=== PATIENT | female | born 1935 | race Caucasian/White ===

== ENCOUNTER 2017-05-22 00:51 | Inpatient (IN) | payer OTHER, MEDICAID ==
[~2017-05-22] VITALS: Ht 157.5 cm; Wt 84.5 kg
[~2017-05-22 00:51] MED LIST: COLE3.75; KETO2SHA; LORATAB; PANTOPRAZOLE; SIMV5TAB50; [UNRECOGNIZED DRUG - CODE]
[2017-05-22 01:52] LABS: Basophils # (auto) 0.1 uL; Basophils % (auto) 1.2 % (0.0-2.0); Eosinophils # (auto) 0.1 uL; Eosinophils % (auto) 1.6 % (0.0-7.0); Hematocrit 39.6 % (36.0-46.0); Hemoglobin 13.2 g/dL (12.2-16.2); Lymphocytes # (auto) 0.9 uL; Lymphocytes % (auto) 16.8 % (10.0-50.0); Mean Corpuscular Hemoglobin 33.8 pg (28.0-32.0); Mean Corpuscular Hgb Conc. 33.5 g/dL (32.0-36.0); Mean Corpuscular Volume 100.9 fL (80.0-100.0); Monocytes # (auto) 0.4 uL; Monocytes % (auto) 8.4 % (0.0-12.0); Neutrophils # (auto) 3.8 uL; Nucleated Red Blood Cells % 0.2 %; Platelet Count (auto) 202 10^3/uL (140-450); Red Blood Cells 3.92 10^6/uL (4.0-5.20); Red Cell Distribution Width 13.2 % (11.8-14.3); White Blood Cell 5.3 10^3/uL (4.4-10.8)
[2017-05-22] MEDS ORDERED: HYDROcodone-ACET 10/325MG TAB PO ONE ×2 (02:30→05:15)
[2017-05-22 02:34] LABS: Anion Gap 1 (5-15); BUN/Creatinine Ratio 24.6; Blood Urea Nitrogen 30 mg/dL (7-18); Carbon Dioxide 36 mmol/L (21-32); Chloride 107 mmol/L (98-107); GFR African American 54 mL/min; GFR Non-African American 45 mL/min; Glucose 102 mg/dL (74-106); Potassium 3.1 mmol/L (3.5-5.1); Sodium 144 mmol/L (136-145)
[2017-05-22 02:35] LABS: Alanine Aminotransferase 16 U/L (13-56); Albumin 3.1 g/dL (3.4-5.0); Alkaline Phosphatase 96 U/L (45-117); Aspartate Aminotransferase 17 U/L (15-37); Bilirubin, Total 0.4 mg/dL (0.2-1.0); Calcium 8.4 mg/dL (8.5-10.1); Magnesium 2.1 mg/dL (1.6-2.6); Total Protein 6.2 g/dL (6.4-8.2)
[2017-05-22] MEDS ORDERED: ONDANSETRON HCL 4 MG/2 ML VIAL IV PRN (06:15)
[2017-05-22] MEDS ORDERED: POTASSIUM CHL 20 Meq TABLET PO ONE (06:15)
[2017-05-22] MEDS ORDERED: NITROGLYCERIN 0.4 MG SL TAB SL PRN (06:15)
[2017-05-22] MEDS ORDERED: MORPHINE SULFATE 4 MG/ML SYR/VIAL IV PRN ×2 (06:15)
[2017-05-22] MEDS: SODIUM CHLORIDE 0.9% 1,000 ML IV SCH ×2 (07:11→12:50)
[2017-05-22 08:20] LABS: INR 1.6 (0.9-1.15); Partial Thromboplastin Time 30.1 sec (22.64-33.71); Prothrombin Time 17.5 sec (9.37-12.3)
[2017-05-22 09:00] VITALS: BP 108/59
[2017-05-22] MEDS: FAMOTIDINE 20 MG TAB PO SCH (10:00)
[2017-05-22] MEDS ORDERED: ENOXAPARIN SOD 30 MG/0.3 ML SYRINGE SC SCH (10:00)
[2017-05-22] MEDS: METOPROLOL SUCCINATE XL 50 MG TAB PO SCH (10:00)
[2017-05-22 10:18] VITALS: BP 108/59
[2017-05-22] MEDS: HYDROcodone-ACET 5/325MG TAB PO PRN ×2 (11:11→16:25)
[2017-05-22 12:00] VITALS: BP 105/47
[2017-05-22 17:00] VITALS: BP 110/63
[2017-05-22] MEDS ORDERED: PHYTONADIONE (VIT K)10 MG/ML 1ML VIAL SUBCUT ONE (17:00)
[2017-05-22] MEDS: ATORVASTATIN 20 MG TAB PO SCH (21:34)
[2017-05-22 22:00] VITALS: BP 118/43
[2017-05-23] MEDS: HYDROcodone-ACET 5/325MG TAB PO PRN ×2 (01:35→12:53)
[2017-05-23 05:14] LABS: Urine Bacteria FEW /hpf (None Seen); Urine Blood 2+ /uL (Negative); Urine Mucus FEW (None Seen); Urine Specific Gravity 1.024 (1.001-1.035); Urine WBC 11 /hpf (0 - 5)
[2017-05-23 05:16] LABS: Basophils # (auto) 0.1 uL; Eosinophils # (auto) 0.1 uL; Lymphocytes # (auto) 0.6 uL; Monocytes # (auto) 0.4 uL; Neutrophils # (auto) 6.6 uL; White Blood Cell 7.8 10^3/uL (4.4-10.8)
[2017-05-23 05:18] LABS: Basophils % (auto) 1.2 % (0.0-2.0); Eosinophils % (auto) 1.5 % (0.0-7.0); Lymphocytes % (auto) 7.9 % (10.0-50.0); Mean Corpuscular Hemoglobin 34.5 pg (28.0-32.0); Mean Corpuscular Hgb Conc. 34.1 g/dL (32.0-36.0); Mean Corpuscular Volume 101.2 fL (80.0-100.0); Neutrophils % (auto) 84.4 % (37.0-80.0); Nucleated Red Blood Cells % 0.1 %; Platelet Count (auto) 160 10^3/uL (140-450); Red Blood Cells 3.75 10^6/uL (4.0-5.20); Red Cell Distribution Width 13.2 % (11.8-14.3)
[2017-05-23 05:33] LABS: Albumin 2.7 g/dL (3.4-5.0); BUN/Creatinine Ratio 24.3; Calcium 8.5 mg/dL (8.5-10.1); Potassium 3.7 mmol/L (3.5-5.1)
[2017-05-23 05:36] LABS: Total Protein 5.7 g/dL (6.4-8.2)
[2017-05-23 05:50] VITALS: BP 108/52
[2017-05-23 08:45] LABS: INR 2.19 (0.9-1.15); Prothrombin Time 24.1 sec (9.37-12.3)
[2017-05-23 09:00] VITALS: BP 137/64
[2017-05-23] MEDS ORDERED: ENOXAPARIN SOD 40 MG/0.4 ML SYRINGE SC SCH (10:00)
[2017-05-23] MEDS: FAMOTIDINE 20 MG TAB PO SCH (10:00)
[2017-05-23 12:00] VITALS: BP 161/93
[2017-05-23] MEDS: SODIUM CHLORIDE 0.9% 1,000 ML IV SCH (12:59)
[2017-05-23 15:00] VITALS: BP 151/90
[2017-05-23] MEDS ORDERED: MEPERIDINE HCL (25 MG/ML) 1ML VIAL IV PRN (17:15)
[2017-05-23] MEDS ORDERED: IOHEXOL 350 MG/ML 100ML IJ ONE (17:26)
[2017-05-23] MEDS: METOPROLOL SUCCINATE XL 50 MG TAB PO SCH (18:11)
[2017-05-23] MEDS: ATORVASTATIN 20 MG TAB PO SCH (21:38)
[2017-05-23 22:00] VITALS: BP 107/57
[2017-05-24 05:55] VITALS: BP 113/61
[2017-05-24] MEDS: SODIUM CHLORIDE 0.9% 1,000 ML IV SCH ×2 (06:25→22:15)
[2017-05-24 07:22] LABS: Basophils # (auto) 0.1 uL; Basophils % (auto) 1.2 % (0.0-2.0); Eosinophils # (auto) 0 uL; Eosinophils % (auto) 0.4 % (0.0-7.0); Hematocrit 36.7 % (36.0-46.0); Hemoglobin 12.4 g/dL (12.2-16.2); Lymphocytes # (auto) 0.4 uL; Lymphocytes % (auto) 4.8 % (10.0-50.0); Mean Corpuscular Hemoglobin 34.1 pg (28.0-32.0); Mean Corpuscular Hgb Conc. 33.8 g/dL (32.0-36.0); Mean Corpuscular Volume 100.9 fL (80.0-100.0); Monocytes # (auto) 0.5 uL; Monocytes % (auto) 6.1 % (0.0-12.0); Neutrophils # (auto) 7.4 uL; Neutrophils % (auto) 87.5 % (37.0-80.0); Platelet Count (auto) 165 10^3/uL (140-450); Red Blood Cells 3.64 10^6/uL (4.0-5.20); Red Cell Distribution Width 12.8 % (11.8-14.3); White Blood Cell 8.5 10^3/uL (4.4-10.8)
[2017-05-24 07:56] LABS: Albumin 2.2 g/dL (3.4-5.0); Calcium 8.1 mg/dL (8.5-10.1); Potassium 3.8 mmol/L (3.5-5.1); Total Protein 5.7 g/dL (6.4-8.2)
[2017-05-24 08:07] VITALS: BP 120/95
[2017-05-24] MEDS: FAMOTIDINE 20 MG TAB PO SCH (10:22)
[2017-05-24] MEDS: LEVOFLOXACIN 500MG 100 ML IV SCH (10:22)
[2017-05-24] MEDS: METOPROLOL SUCCINATE XL 50 MG TAB PO SCH (10:23)
[2017-05-24] MEDS: HYDROcodone-ACET 5/325MG TAB PO PRN ×2 (10:26→14:32)
[2017-05-24 11:26] VITALS: BP 100/48
[2017-05-24 14:12] LABS: INR 1.11 (0.9-1.15); Prothrombin Time 12.1 sec (9.37-12.3)
[2017-05-24 17:01] LABS: Urine Amorphous Crystal FEW /hpf (None Seen); Urine Bacteria FEW /hpf (None Seen); Urine Blood 1+ /uL (Negative); Urine Mucus FEW (None Seen); Urine Specific Gravity 1.032 (1.001-1.035); Urine WBC 27 /hpf (0 - 5)
[2017-05-24 17:15] VITALS: BP 81/34
[2017-05-24 22:00] VITALS: BP 110/53
[2017-05-24] MEDS: ATORVASTATIN 20 MG TAB PO SCH (22:00)
[2017-05-24] MEDS ORDERED: ENOXAPARIN SOD 30 MG/0.3 ML SYRINGE SC ONE (22:30)
[2017-05-25 05:34] VITALS: BP 118/63
[2017-05-25 08:00] VITALS: BP 120/95
[2017-05-25 09:00] VITALS: BP 120/68
[2017-05-25] MEDS: HYDROcodone-ACET 5/325MG TAB PO PRN ×2 (10:25→16:51)
[2017-05-25] MEDS: FAMOTIDINE 20 MG TAB PO SCH (10:25)
[2017-05-25] MEDS: LEVOFLOXACIN 500MG 100 ML IV SCH (10:25)
[2017-05-25] MEDS: ENOXAPARIN SOD 40 MG/0.4 ML SYRINGE SC SCH (10:26)
[2017-05-25] MEDS: SODIUM CHLORIDE 0.9% 1,000 ML IV SCH (10:56)
[2017-05-25] MEDS: METOPROLOL SUCCINATE XL 50 MG TAB PO SCH (10:57)
[2017-05-25 13:00] VITALS: BP 104/40
[2017-05-25 16:00] VITALS: BP 127/68
[2017-05-25] MEDS: BOOST PLUS 8 ounce PO SCH (18:00)
[2017-05-25] MEDS: ATORVASTATIN 20 MG TAB PO SCH (21:50)
[2017-05-25 22:00] VITALS: BP 136/64
[2017-05-25] MEDS: ACETAMINOPHEN 325 MG TAB PO PRN (22:03)
[2017-05-26] VITALS (7 sets, daily range): BP systolic 117–129; BP diastolic 57–76
[2017-05-26] MEDS: SODIUM CHLORIDE 0.9% 1,000 ML IV SCH ×2 (05:25→17:58)
[2017-05-26] MEDS: BOOST PLUS 8 ounce PO SCH ×2 (08:00→17:58)
[2017-05-26] MEDS: METOPROLOL SUCCINATE XL 50 MG TAB PO SCH (09:36)
[2017-05-26] MEDS: LEVOFLOXACIN 500MG 100 ML IV SCH (09:36)
[2017-05-26] MEDS: ENOXAPARIN SOD 40 MG/0.4 ML SYRINGE SC SCH (09:36)
[2017-05-26] MEDS: FAMOTIDINE 20 MG TAB PO SCH (09:36)
[2017-05-26 19:14] LABS: Basophils # (auto) 0.1 uL; Basophils % (auto) 0.7 % (0.0-2.0); Eosinophils # (auto) 0.3 uL; Eosinophils % (auto) 3.6 % (0.0-7.0); Hemoglobin 12.9 g/dL (12.2-16.2); Lymphocytes # (auto) 0.5 uL; Lymphocytes % (auto) 6.4 % (10.0-50.0); Mean Corpuscular Hemoglobin 33.4 pg (28.0-32.0); Mean Corpuscular Hgb Conc. 33.1 g/dL (32.0-36.0); Mean Corpuscular Volume 100.9 fL (80.0-100.0); Monocytes # (auto) 0.7 uL; Monocytes % (auto) 9.2 % (0.0-12.0); Neutrophils # (auto) 5.7 uL; Neutrophils % (auto) 80.1 % (37.0-80.0); Platelet Count (auto) 203 10^3/uL (140-450); Red Blood Cells 3.86 10^6/uL (4.0-5.20); Red Cell Distribution Width 13.1 % (11.8-14.3); White Blood Cell 7.2 10^3/uL (4.4-10.8)
[2017-05-26 19:25] LABS: INR 0.98 (0.9-1.15); Prothrombin Time 10.7 sec (9.37-12.3)
[2017-05-26 19:29] LABS: BUN/Creatinine Ratio 24.6; Calcium 8.3 mg/dL (8.5-10.1); Potassium 4.4 mmol/L (3.5-5.1)
[2017-05-26 21:37] LABS: Urine Bacteria NONE SEEN /hpf (None Seen); Urine Blood 1+ /uL (Negative); Urine Mucus FEW (None Seen); Urine Specific Gravity 1.018 (1.001-1.035); Urine WBC 8 /hpf (0 - 5)
[2017-05-26] MEDS: ATORVASTATIN 20 MG TAB PO SCH (21:44)
[2017-05-27] VITALS (7 sets, daily range): BP systolic 101–138; BP diastolic 57–84
[2017-05-27] MEDS: BOOST PLUS 8 ounce PO SCH ×2 (08:00→18:11)
[2017-05-27] MEDS: ENOXAPARIN SOD 40 MG/0.4 ML SYRINGE SC SCH (09:19)
[2017-05-27] MEDS ORDERED: FUROSEMIDE 20 MG/2 ML VIAL IV ONE (09:45)
[2017-05-27] MEDS: LEVOFLOXACIN 500MG 100 ML IV SCH (09:58)
[2017-05-27] MEDS: FAMOTIDINE 20 MG TAB PO SCH (09:59)
[2017-05-27] MEDS: METOPROLOL SUCCINATE XL 50 MG TAB PO SCH (09:59)
[2017-05-27] MEDS: ACETAMINOPHEN 325 MG TAB PO PRN (16:58)
[2017-05-27] MEDS: ATORVASTATIN 20 MG TAB PO SCH (21:38)
[2017-05-28] VITALS (38 sets, daily range): BP systolic 47–166; BP diastolic 25–89
[2017-05-28] MEDS ORDERED: fentaNYL CITRATE 100 MCG/2 ML VL ONE ×2 (07:19→08:47)
[2017-05-28] MEDS ORDERED: MEPERIDINE HCL (50 MG/ML) 1 ML VIAL ONE ×2 (07:19→15:18)
[2017-05-28] MEDS ORDERED: fentaNYL CITRATE 5 ML ONE (07:19)
[2017-05-28] MEDS ORDERED: MIDAZOLAM HCL 1MG/1ML-2 ML VIAL ONE ×2 (07:20→08:22)
[2017-05-28] MEDS ORDERED: PHENYLEPHRINE HCL 10 MG/ML VL IV ONE (07:35)
[2017-05-28] MEDS ORDERED: ETOMIDATE (2MG/ML) 20ML VIAL IV ONE (07:35)
[2017-05-28] MEDS ORDERED: LEVOFLOXACIN 500MG 100 ML IV ONE (07:46)
[2017-05-28] MEDS ORDERED: DEXAMETHASONE SOD PHOS 10MG/1ML VIAL INJ ONE (08:00)
[2017-05-28] MEDS: BOOST PLUS 8 ounce PO SCH (08:00)
[2017-05-28] MEDS ORDERED: SUCCINYLCHOLINE CHLORIDE 20 MG/ML 10ML VIAL IV ONE (08:33)
[2017-05-28] MEDS ORDERED: LABETALOL HCL 5 MG/ML 4ML SYRINGE IV PRN (09:30)
[2017-05-28] MEDS ORDERED: ONDANSETRON HCL 4 MG/2 ML VIAL IV ONE (09:30)
[2017-05-28] MEDS ORDERED: ePHEDrine SULFATE 50 MG/ML AMP IV PRN (09:30)
[2017-05-28] MEDS ORDERED: MIDAZOLAM HCL 1MG/1ML-2 ML VIAL IV PRN (09:30)
[2017-05-28] MEDS: LEVOFLOXACIN 500MG 100 ML IV SCH (10:00)
[2017-05-28] MEDS ORDERED: fentaNYL CITRATE 100 MCG/2 ML VL IV ONE ×2 (10:00→13:00)
[2017-05-28] MEDS: ENOXAPARIN SOD 40 MG/0.4 ML SYRINGE SC SCH (10:00)
[2017-05-28] MEDS: FAMOTIDINE 20 MG TAB PO SCH (10:00)
[2017-05-28] MEDS ORDERED: PHENYLEPHRINE HCL 10 MG/ML VL IV PRN (10:45)
[2017-05-28] MEDS: NOREPINEPHRINE 8 MG/250ML KIT 250 ML IV SCH (11:00)
[2017-05-28] MEDS ORDERED: SODIUM CHLORIDE 0.9% 250 ML IV ONE (11:00)
[2017-05-28] MEDS: MIDAZOLAM DRIP 50 mg/50mL 50 ML IV SCH ×2 (11:00→12:00)
[2017-05-28] MEDS ORDERED: MEPERIDINE HCL (25 MG/ML) 1ML VIAL IM PRN (12:30)
[2017-05-28] MEDS ORDERED: MEPERIDINE HCL (50 MG/ML) 1 ML VIAL IV ONE (15:30)
[2017-05-28 16:19] LABS: Basophils # (auto) 0.1 uL; Basophils % (auto) 0.4 % (0.0-2.0); Eosinophils # (auto) 0 uL; Hematocrit 40.5 % (36.0-46.0); Hemoglobin 13.7 g/dL (12.2-16.2); Lymphocytes # (auto) 0.2 uL; Lymphocytes % (auto) 1.3 % (10.0-50.0); Mean Corpuscular Hemoglobin 33.9 pg (28.0-32.0); Mean Corpuscular Hgb Conc. 33.8 g/dL (32.0-36.0); Mean Corpuscular Volume 100.3 fL (80.0-100.0); Monocytes # (auto) 0.4 uL; Monocytes % (auto) 2.8 % (0.0-12.0); Neutrophils # (auto) 14.7 uL; Neutrophils % (auto) 95.5 % (37.0-80.0); Platelet Count (auto) 316 10^3/uL (140-450); Red Blood Cells 4.04 10^6/uL (4.0-5.20); Red Cell Distribution Width 12.6 % (11.8-14.3); White Blood Cell 15.4 10^3/uL (4.4-10.8)
[2017-05-28] MEDS: SODIUM CHLORIDE 0.9% 1,000 ML IV SCH (20:00)
[2017-05-28] MEDS: ATORVASTATIN 20 MG TAB PO SCH (21:48)
[2017-05-28] MEDS: MEPERIDINE HCL (25 MG/ML) 1ML VIAL IV PRN (21:49)
[2017-05-29] VITALS (107 sets, daily range): BP systolic 66–169; BP diastolic 38–160
[2017-05-29] MEDS: NOREPINEPHRINE 8 MG/250ML KIT 250 ML IV SCH (03:00)
[2017-05-29] MEDS: SODIUM CHLORIDE 0.9% 1,000 ML IV SCH ×2 (04:35→10:23)
[2017-05-29] MEDS: MEPERIDINE HCL (25 MG/ML) 1ML VIAL IV PRN ×3 (05:43→15:28)
[2017-05-29] MEDS: BOOST PLUS 8 ounce PO SCH ×2 (08:00→18:00)
[2017-05-29] MEDS: METOPROLOL SUCCINATE XL 50 MG TAB PO SCH ×2 (10:00→10:21)
[2017-05-29] MEDS: FAMOTIDINE 20 MG TAB PO SCH (10:20)
[2017-05-29] MEDS: LEVOFLOXACIN 500MG 100 ML IV SCH (10:21)
[2017-05-29] MEDS: ENOXAPARIN SOD 40 MG/0.4 ML SYRINGE SC SCH (10:21)
[2017-05-29] MEDS ORDERED: FUROSEMIDE 20 MG/2 ML VIAL ONE (18:44)
[2017-05-29] MEDS ORDERED: FUROSEMIDE 20 MG/2 ML VIAL IV ONE (18:45)
[2017-05-29] MEDS: fentaNYL Drip 2500mCg/250mlNS 250 ML IV SCH (19:44)
[2017-05-29] MEDS: ATORVASTATIN 20 MG TAB PO SCH (22:00)
[2017-05-29] MEDS: HYDROcodone-ACET 5/325MG TAB PO PRN (23:45)
[2017-05-30] VITALS (104 sets, daily range): BP systolic 65–172; BP diastolic 28–167
[2017-05-30] MEDS: MEPERIDINE HCL (25 MG/ML) 1ML VIAL IV PRN ×3 (02:13→20:10)
[2017-05-30 03:39] LABS: Basophils # (auto) 0 uL; Basophils % (auto) 0.4 % (0.0-2.0); Eosinophils # (auto) 0.1 uL; Eosinophils % (auto) 0.7 % (0.0-7.0); Hemoglobin 11.7 g/dL (12.2-16.2); Lymphocytes # (auto) 0.3 uL; Lymphocytes % (auto) 3.9 % (10.0-50.0); Mean Corpuscular Hgb Conc. 34.4 g/dL (32.0-36.0); Mean Corpuscular Volume 98.8 fL (80.0-100.0); Monocytes # (auto) 0.8 uL; Monocytes % (auto) 8.8 % (0.0-12.0); Neutrophils # (auto) 7.6 uL; Neutrophils % (auto) 86.2 % (37.0-80.0); Platelet Count (auto) 269 10^3/uL (140-450); Red Blood Cells 3.45 10^6/uL (4.0-5.20); Red Cell Distribution Width 12.9 % (11.8-14.3); White Blood Cell 8.9 10^3/uL (4.4-10.8)
[2017-05-30 03:51] LABS: BUN/Creatinine Ratio 30.2; Calcium 8.2 mg/dL (8.5-10.1); Potassium 3.1 mmol/L (3.5-5.1)
[2017-05-30 03:52] LABS: Bilirubin, Total 0.6 mg/dL (0.2-1.0); Total Protein 5.3 g/dL (6.4-8.2)
[2017-05-30] MEDS: MIDAZOLAM DRIP 50 mg/50mL 50 ML IV SCH (06:02)
[2017-05-30] MEDS: SODIUM CHLORIDE 0.9% 1,000 ML IV SCH ×3 (06:02→23:00)
[2017-05-30] MEDS: BOOST PLUS 8 ounce PO SCH ×2 (08:00→18:00)
[2017-05-30] MEDS: METOPROLOL SUCCINATE XL 50 MG TAB PO SCH (09:03)
[2017-05-30] MEDS ORDERED: PANTOPRAZOLE 40 MG/10 ML VIAL IV SCH (10:00)
[2017-05-30] MEDS: NOREPINEPHRINE 8 MG/250ML KIT 250 ML IV SCH (10:30)
[2017-05-30] MEDS: ENOXAPARIN SOD 40 MG/0.4 ML SYRINGE SC SCH (10:30)
[2017-05-30] MEDS: LEVOFLOXACIN 500MG 100 ML IV SCH (10:30)
[2017-05-30] MEDS: DOXYCYCLINE HYC 100MG/250ML 250 ML IV SCH (15:30)
[2017-05-30] MEDS: fentaNYL Drip 2500mCg/250mlNS 250 ML IV SCH (19:44)
[2017-05-30] MEDS: ATORVASTATIN 20 MG TAB PO SCH (21:57)
[2017-05-30] MEDS: HYDROcodone-ACET 5/325MG TAB PO PRN (21:57)
[2017-05-30] MEDS ORDERED: POTASSIUM CHL 20MEQ/100ML 100 ML IV ONE ×2 (22:45→22:47)
[2017-05-31] VITALS (105 sets, daily range): BP systolic 61–210; BP diastolic 31–203
[2017-05-31] MEDS: DOXYCYCLINE HYC 100MG/250ML 250 ML IV SCH ×2 (03:40→16:55)
[2017-05-31] MEDS: HYDROcodone-ACET 5/325MG TAB PO PRN (03:45)
[2017-05-31 03:54] LABS: Albumin 1.7 g/dL (3.4-5.0); BUN/Creatinine Ratio 27.9; Calcium 7.7 mg/dL (8.5-10.1)
[2017-05-31 03:56] LABS: Bilirubin, Total 0.6 mg/dL (0.2-1.0); Total Protein 4.9 g/dL (6.4-8.2)
[2017-05-31 04:08] LABS: Eosinophils # (auto) 0.1 uL; Lymphocytes # (auto) 0.3 uL; Monocytes # (auto) 0.6 uL; Red Cell Distribution Width 13.1 % (11.8-14.3)
[2017-05-31 04:10] LABS: Basophils # (auto) 0 uL; Basophils % (auto) 0.6 % (0.0-2.0); Eosinophils % (auto) 1.5 % (0.0-7.0); Hematocrit 31.8 % (36.0-46.0); Hemoglobin 10.9 g/dL (12.2-16.2); Lymphocytes % (auto) 4.5 % (10.0-50.0); Mean Corpuscular Hemoglobin 33.8 pg (28.0-32.0); Mean Corpuscular Hgb Conc. 34.3 g/dL (32.0-36.0); Mean Corpuscular Volume 98.6 fL (80.0-100.0); Neutrophils # (auto) 5.9 uL; Neutrophils % (auto) 85.4 % (37.0-80.0); Nucleated Red Blood Cells % 0.1 %; Platelet Count (auto) 254 10^3/uL (140-450); Red Blood Cells 3.22 10^6/uL (4.0-5.20); White Blood Cell 6.9 10^3/uL (4.4-10.8)
[2017-05-31] MEDS: ALBUTEROL SULF 2.5 MG/0.5ML(0.5%) NEB SOLN NEB SCH ×4 (05:44→22:19)
[2017-05-31] MEDS: IPRATROPIUM BROM 0.5 MG/2.5ML INH SOL NEB SCH ×4 (05:44→22:19)
[2017-05-31] MEDS: BOOST PLUS 8 ounce PO SCH ×3 (08:00→22:00)
[2017-05-31] MEDS: METOPROLOL SUCCINATE XL 50 MG TAB PO SCH (09:58)
[2017-05-31] MEDS: LEVOFLOXACIN 500MG 100 ML IV SCH (09:58)
[2017-05-31] MEDS: ENOXAPARIN SOD 40 MG/0.4 ML SYRINGE SC SCH (09:59)
[2017-05-31] MEDS: NOREPINEPHRINE 8 MG/250ML KIT 250 ML IV SCH (09:59)
[2017-05-31] MEDS: MIDAZOLAM DRIP 50 mg/50mL 50 ML IV SCH (10:58)
[2017-05-31] MEDS ORDERED: FUROSEMIDE 20 MG/2 ML VIAL ONE (11:13)
[2017-05-31] MEDS ORDERED: methylPREDNISolone SOD SUCC 125 MG/2 ML VL IV ONE (11:15)
[2017-05-31] MEDS ORDERED: IPRATROPIUM BROM 0.5 MG/2.5ML INH SOL NEB PRN (11:15)
[2017-05-31] MEDS ORDERED: FUROSEMIDE 20 MG/2 ML VIAL IV ONE ×2 (11:15→17:00)
[2017-05-31] MEDS ORDERED: ALBUTEROL SULF 2.5 MG/0.5ML(0.5%) NEB SOLN NEB PRN (11:15)
[2017-05-31] MEDS ORDERED: IPRATROPIUM BROM 0.5 MG/2.5ML INH SOL ONE (11:16)
[2017-05-31] MEDS ORDERED: ALBUTEROL SULF 2.5 MG/0.5ML(0.5%) NEB SOLN ONE (11:16)
[2017-05-31] MEDS ORDERED: POTASSIUM CHL 20MEQ/100ML 200 ML IV ONE (11:20)
[2017-05-31] MEDS: POTASSIUM CHL 20MEQ/100ML 100 ML IV SCH ×2 (12:19→14:00)
[2017-05-31] MEDS: methylPREDNISolone SOD SUCC 40 MG/ML VL IV SCH ×2 (14:00→21:27)
[2017-05-31] MEDS: MEPERIDINE HCL (25 MG/ML) 1ML VIAL IV PRN ×2 (16:49→21:27)
[2017-05-31] MEDS: fentaNYL Drip 2500mCg/250mlNS 250 ML IV SCH (19:44)
[2017-05-31] MEDS: ATORVASTATIN 20 MG TAB PO SCH (21:27)
[2017-05-31] MEDS ORDERED: FLUCONAZOLE 200MG/100ML 100 ML IV ONE (22:30)
[2017-06-01] VITALS (97 sets, daily range): BP systolic 72–148; BP diastolic 39–99
[2017-06-01] MEDS: IPRATROPIUM BROM 0.5 MG/2.5ML INH SOL NEB SCH ×6 (02:43→22:02)
[2017-06-01] MEDS: ALBUTEROL SULF 2.5 MG/0.5ML(0.5%) NEB SOLN NEB SCH ×6 (02:43→22:02)
[2017-06-01] MEDS: DOXYCYCLINE HYC 100MG/250ML 250 ML IV SCH ×2 (03:16→16:00)
[2017-06-01] MEDS: methylPREDNISolone SOD SUCC 40 MG/ML VL IV SCH ×3 (06:07→21:24)
[2017-06-01] MEDS: BOOST PLUS 8 ounce PO SCH ×2 (08:00→16:14)
[2017-06-01 08:48] LABS: Albumin 1.7 g/dL (3.4-5.0); BUN/Creatinine Ratio 26.4; Bilirubin, Total 0.5 mg/dL (0.2-1.0); Calcium 7.9 mg/dL (8.5-10.1); Potassium 3.2 mmol/L (3.5-5.1)
[2017-06-01] MEDS: METOPROLOL SUCCINATE XL 50 MG TAB PO SCH (09:47)
[2017-06-01] MEDS: DOCUSATE SOD 100 MG CAP PO SCH ×2 (09:47→21:24)
[2017-06-01] MEDS: FLUCONAZOLE 200MG/100ML 100 ML IV SCH (09:47)
[2017-06-01] MEDS: ENOXAPARIN SOD 40 MG/0.4 ML SYRINGE SC SCH (09:47)
[2017-06-01] MEDS ORDERED: POTASSIUM CHL 20 Meq TABLET PO ONE (10:00)
[2017-06-01] MEDS: LEVOFLOXACIN 500MG 100 ML IV SCH (10:30)
[2017-06-01] MEDS ORDERED: POTASSIUM CHL 20 Meq TABLET PO PRN ×2 (10:45)
[2017-06-01] MEDS: NOREPINEPHRINE 8 MG/250ML KIT 250 ML IV SCH (10:58)
[2017-06-01] MEDS: MIDAZOLAM DRIP 50 mg/50mL 50 ML IV SCH (10:58)
[2017-06-01] MEDS ORDERED: MAGNESIUM SULFATE 1GM/100ML 100 ML IV ONE (16:40)
[2017-06-01] MEDS: MAGNESIUM SULFATE 1GM/100ML 100 ML IV SCH ×3 (18:00→19:13)
[2017-06-01] MEDS: HYDROcodone-ACET 5/325MG TAB PO PRN (18:47)
[2017-06-01] MEDS: fentaNYL Drip 2500mCg/250mlNS 250 ML IV SCH (19:44)
[2017-06-01] MEDS: ATORVASTATIN 20 MG TAB PO SCH (21:24)
[2017-06-01] MEDS: MEPERIDINE HCL (25 MG/ML) 1ML VIAL IV PRN (21:48)
[2017-06-02] VITALS (88 sets, daily range): BP systolic 80–173; BP diastolic 31–111
[2017-06-02] MEDS: ALBUTEROL SULF 2.5 MG/0.5ML(0.5%) NEB SOLN NEB SCH ×6 (02:07→22:11)
[2017-06-02] MEDS: IPRATROPIUM BROM 0.5 MG/2.5ML INH SOL NEB SCH ×6 (02:07→22:11)
[2017-06-02] MEDS: DOXYCYCLINE HYC 100MG/250ML 250 ML IV SCH ×2 (03:11→15:31)
[2017-06-02 04:13] LABS: Albumin 1.9 g/dL (3.4-5.0); BUN/Creatinine Ratio 26.9; Calcium 8.2 mg/dL (8.5-10.1); Magnesium 2.5 mg/dL (1.6-2.6); Potassium 4.1 mmol/L (3.5-5.1)
[2017-06-02 04:15] LABS: Bilirubin, Total 0.5 mg/dL (0.2-1.0); Total Protein 5.2 g/dL (6.4-8.2)
[2017-06-02] MEDS: methylPREDNISolone SOD SUCC 40 MG/ML VL IV SCH ×3 (05:18→22:00)
[2017-06-02] MEDS: BOOST PLUS 8 ounce PO SCH ×2 (10:44→18:00)
[2017-06-02] MEDS: METOPROLOL SUCCINATE XL 50 MG TAB PO SCH (10:52)
[2017-06-02] MEDS: DOCUSATE SOD 100 MG CAP PO SCH ×2 (10:52→22:00)
[2017-06-02] MEDS: FLUCONAZOLE 200MG/100ML 100 ML IV SCH (10:53)
[2017-06-02] MEDS: ENOXAPARIN SOD 40 MG/0.4 ML SYRINGE SC SCH (10:53)
[2017-06-02] MEDS ORDERED: MEPERIDINE HCL (50 MG/ML) 1 ML VIAL IV PRN (11:00)
[2017-06-02] MEDS: NOREPINEPHRINE 8 MG/250ML KIT 250 ML IV SCH (11:50)
[2017-06-02] MEDS: MIDAZOLAM DRIP 50 mg/50mL 50 ML IV SCH (11:50)
[2017-06-02] MEDS: LEVOFLOXACIN 500MG 100 ML IV SCH (12:06)
[2017-06-02] MEDS: fentaNYL Drip 2500mCg/250mlNS 250 ML IV SCH (19:44)
[2017-06-02] MEDS: ATORVASTATIN 20 MG TAB PO SCH (22:00)
[2017-06-03] VITALS: BP 95/59
[2017-06-03 00:15] VITALS: BP 109/60
[2017-06-03 00:30] VITALS: BP 106/63
[2017-06-03] MEDS: IPRATROPIUM BROM 0.5 MG/2.5ML INH SOL NEB SCH ×6 (02:00→22:11)
[2017-06-03] MEDS: ALBUTEROL SULF 2.5 MG/0.5ML(0.5%) NEB SOLN NEB SCH ×6 (02:00→22:11)
[2017-06-03] MEDS: DOXYCYCLINE HYC 100MG/250ML 250 ML IV SCH ×2 (03:30→14:54)
[2017-06-03] MEDS: methylPREDNISolone SOD SUCC 40 MG/ML VL IV SCH ×3 (06:00→21:59)
[2017-06-03] MEDS: BOOST PLUS 8 ounce PO SCH ×2 (08:00→18:00)
[2017-06-03 09:46] LABS: Basophils # (auto) 0 uL; Basophils % (auto) 0.1 % (0.0-2.0); Eosinophils # (auto) 0 uL; Hematocrit 34.6 % (36.0-46.0); Hemoglobin 11.3 g/dL (12.2-16.2); Lymphocytes # (auto) 0.4 uL; Mean Corpuscular Hemoglobin 32.5 pg (28.0-32.0); Mean Corpuscular Hgb Conc. 32.6 g/dL (32.0-36.0); Mean Corpuscular Volume 99.7 fL (80.0-100.0); Monocytes # (auto) 0.9 uL; Monocytes % (auto) 6.4 % (0.0-12.0); Neutrophils # (auto) 12.6 uL; Neutrophils % (auto) 90.5 % (37.0-80.0); Platelet Count (auto) 358 10^3/uL (140-450); Red Blood Cells 3.46 10^6/uL (4.0-5.20); Red Cell Distribution Width 13.1 % (11.8-14.3); White Blood Cell 13.9 10^3/uL (4.4-10.8)
[2017-06-03] MEDS: DOCUSATE SOD 100 MG CAP PO SCH ×2 (10:00→22:00)
[2017-06-03] MEDS: METOPROLOL SUCCINATE XL 50 MG TAB PO SCH (10:00)
[2017-06-03] MEDS ORDERED: PRO-STAT 64 30ML PO ONE (10:15)
[2017-06-03] MEDS: LEVOFLOXACIN 500MG 100 ML IV SCH (10:15)
[2017-06-03 10:18] LABS: Albumin 2.2 g/dL (3.4-5.0); BUN/Creatinine Ratio 33.3; Bilirubin, Total 0.6 mg/dL (0.2-1.0); Calcium 8.6 mg/dL (8.5-10.1); Potassium 4.1 mmol/L (3.5-5.1); Total Protein 5.5 g/dL (6.4-8.2)
[2017-06-03] MEDS: NOREPINEPHRINE 8 MG/250ML KIT 250 ML IV SCH (10:58)
[2017-06-03] MEDS: MIDAZOLAM DRIP 50 mg/50mL 50 ML IV SCH (10:58)
[2017-06-03] MEDS: FLUCONAZOLE 200MG/100ML 100 ML IV SCH (12:42)
[2017-06-03] MEDS: ENOXAPARIN SOD 40 MG/0.4 ML SYRINGE SC SCH (14:54)
[2017-06-03 17:24] VITALS: BP 129/62
[2017-06-03] MEDS: PRO-STAT 64 30ML PO SCH (18:00)
[2017-06-03 21:48] VITALS: BP 112/61
[2017-06-03] MEDS: ATORVASTATIN 20 MG TAB PO SCH (22:00)
[2017-06-04 01:14] VITALS: BP 112/61
[2017-06-04] MEDS: IPRATROPIUM BROM 0.5 MG/2.5ML INH SOL NEB SCH ×6 (02:20→22:13)
[2017-06-04] MEDS: ALBUTEROL SULF 2.5 MG/0.5ML(0.5%) NEB SOLN NEB SCH ×6 (02:20→22:13)
[2017-06-04] MEDS: DOXYCYCLINE HYC 100MG/250ML 250 ML IV SCH ×2 (03:48→15:21)
[2017-06-04 05:00] VITALS: BP 98/52
[2017-06-04] MEDS: methylPREDNISolone SOD SUCC 40 MG/ML VL IV SCH ×3 (06:16→22:18)
[2017-06-04] MEDS: BOOST PLUS 8 ounce PO SCH ×2 (08:36→17:43)
[2017-06-04] MEDS: PRO-STAT 64 30ML PO SCH ×2 (08:37→17:43)
[2017-06-04 09:00] VITALS: BP 109/50
[2017-06-04] MEDS: DOCUSATE SOD 100 MG CAP PO SCH ×2 (10:05→22:19)
[2017-06-04] MEDS: ENOXAPARIN SOD 40 MG/0.4 ML SYRINGE SC SCH (10:05)
[2017-06-04] MEDS: METOPROLOL SUCCINATE XL 50 MG TAB PO SCH (10:06)
[2017-06-04] MEDS: LEVOFLOXACIN 500MG 100 ML IV SCH (10:06)
[2017-06-04] MEDS: FLUCONAZOLE 200MG/100ML 100 ML IV SCH (10:07)
[2017-06-04 13:00] VITALS: BP 99/51
[2017-06-04 16:59] VITALS: BP 96/49
[2017-06-04 22:00] VITALS: BP 103/57
[2017-06-04] MEDS: ATORVASTATIN 20 MG TAB PO SCH (22:19)
[2017-06-05] MEDS: ALBUTEROL SULF 2.5 MG/0.5ML(0.5%) NEB SOLN NEB SCH ×3 (02:00→10:16)
[2017-06-05] MEDS: IPRATROPIUM BROM 0.5 MG/2.5ML INH SOL NEB SCH ×3 (02:00→10:16)
[2017-06-05] MEDS: DOXYCYCLINE HYC 100MG/250ML 250 ML IV SCH (03:13)
[2017-06-05 05:29] VITALS: BP 115/66
[2017-06-05] MEDS: methylPREDNISolone SOD SUCC 40 MG/ML VL IV SCH (05:38)
[2017-06-05] MEDS: BOOST PLUS 8 ounce PO SCH (08:03)
[2017-06-05] MEDS: PRO-STAT 64 30ML PO SCH (08:03)
[2017-06-05 08:04] VITALS: BP 126/62
[2017-06-05] MEDS ORDERED: SERTRALINE HCL 50 MG TAB PO SCH (10:00)
[2017-06-05] MEDS: ENOXAPARIN SOD 40 MG/0.4 ML SYRINGE SC SCH (10:15)
[2017-06-05] MEDS: LEVOFLOXACIN 500MG 100 ML IV SCH (10:15)
[2017-06-05] MEDS: FLUCONAZOLE 200MG/100ML 100 ML IV SCH (10:15)
[2017-06-05] MEDS: DOCUSATE SOD 100 MG CAP PO SCH (10:16)
[2017-06-05] MEDS: METOPROLOL SUCCINATE XL 50 MG TAB PO SCH (10:17)
== END 2017-06-05 12:40 | DRG 469 ==
LOC: EDBD 00:51 → ER 00:51 → WEST WING 00:52 → TELE-WESTW 05-26 21:36 → ICU WEST 05-28 16:45 → TELE-WESTW 06-03 17:03
PROVIDERS: ADMIT Nurse Practitioner; ATTEND Internal Medicine
PROC: 5A1945Z Respiratory Ventilation, 24-96 Consecutive Hours (ICD-10-PCS; 2017-05-28)
PROC: 0MBM0ZZ Excision of Left Hip Bursa and Ligament, Open Approach (ICD-10-PCS; 2017-05-28)
PROC: 0SRS0JZ Replacement of Left Hip Joint, Femoral Surface with Synthetic Substitute, Open Approach (ICD-10-PCS; principal; 2017-05-28 07:45)
PROC: 5A09357 Assistance with Respiratory Ventilation, Less than 24 Consecutive Hours, Continuous Positive Airway Pressure (ICD-10-PCS; 2017-05-31)
DX: M80.852A Other osteoporosis with current pathological fracture, left femur, initial encounter for fracture (principal); N17.0 Acute kidney failure with tubular necrosis; J96.00 Acute respiratory failure, unspecified whether with hypoxia or hypercapnia; I13.0 Hypertensive heart and chronic kidney disease with heart failure and stage 1 through stage 4 chronic kidney disease, or unspecified chronic kidney disease; I50.9 Heart failure, unspecified; W18.39XA Other fall on same level, initial encounter; J44.9 Chronic obstructive pulmonary disease, unspecified; I48.0 Paroxysmal atrial fibrillation; E66.9 Obesity, unspecified; E78.5 Hyperlipidemia, unspecified; E87.6 Hypokalemia; F17.210 Nicotine dependence, cigarettes, uncomplicated; F32.9 Major depressive disorder, single episode, unspecified; I35.0 Nonrheumatic aortic (valve) stenosis; I70.0 Atherosclerosis of aorta; I73.9 Peripheral vascular disease, unspecified; K21.9 Gastro-esophageal reflux disease without esophagitis; I87.8 Other specified disorders of veins; R00.0 Tachycardia, unspecified; M51.36 Other intervertebral disc degeneration, lumbar region; M19.90 Unspecified osteoarthritis, unspecified site; N18.3 Chronic kidney disease, stage 3 (moderate); Z86.711 Personal history of pulmonary embolism; Z86.718 Personal history of other venous thrombosis and embolism; Z68.34 Body mass index [BMI] 34.0-34.9, adult; Z90.710 Acquired absence of both cervix and uterus; Y93.89 Activity, other specified; Y92.89 Other specified places as the place of occurrence of the external cause; Y99.8 Other external cause status; Z88.1 Allergy status to other antibiotic agents; Z88.6 Allergy status to analgesic agent; Z88.2 Allergy status to sulfonamides; Z88.8 Allergy status to other drugs, medicaments and biological substances; Z90.49 Acquired absence of other specified parts of digestive tract; Z87.440 Personal history of urinary (tract) infections; Y83.9 Surgical procedure, unspecified as the cause of abnormal reaction of the patient, or of later complication, without mention of misadventure at the time of the procedure
CPT/HCPCS: 36415; 36600; 51702; 70450; 71045; 71275; 73501; 80048; 80053; 81001; 82805; 82962; 83735; 83880; 84484; 85025; 85610; 85730; 86850; 86900; 86901; 87040; 87070; 87081; 87205; 93005; 93306; 93971; 94003; 94640; 94660; 97163; 97530; A4565; J0330; J1100; J1450; J1956; J2250; J2405; J3430; J3480; J3490